=== PATIENT | male | born 1960 | race Caucasian/White ===

== ENCOUNTER 2023-06-01 08:14 | Observation (INO) ==
[~2023-06-01 08:14] MED LIST: Buffered Lidocaine 1% SYRIN 1 ml INTRADERM ONE; Famotidine IV 10 MG/ML 2 ml VIAL (20 mg) IV ONE; Lactated Ringers 1000 ml BAG 1,000 ML IV SCH; Naloxone 0.4 mg VIAL 0.4 mg/ml 1 ml VIAL IV PRN; Ondansetron 4 mg VIAL 2 MG/ML 2 ml VIAL IV PRN; fentaNYL 100 mcg/2 ml 50 MCG/ML VIAL IV PRN
[2023-06-01] MEDS ORDERED: ceFAZolin 2 GM in NS PREMIX 2 GM/100 ML BAG IVPB ONE (08:48)
[2023-06-01] MEDS ORDERED: Tranexamic Acid 1 GM/100ML BAG 2,000 MG/200 ML BAG IV ONE (08:48)
[2023-06-01 09:21] LABS: Rapid COVID-19 Molecular Undetected (Undetected)
[2023-06-01] MEDS ORDERED: Midazolam 2 mg/2 ml VIAL 1 mg/ml 2 ml VIAL (2 mg) ONE (09:25)
[2023-06-01] MEDS ORDERED: Dexamethasone IV 4 MG/ML VIAL 1 ml VIAL ONE ×2 (09:25→12:15)
[2023-06-01] MEDS ORDERED: Bupivacaine 0.5% SDV PF 30ML VIAL ONE (09:25)
[2023-06-01] MEDS ORDERED: Famotidine IV 10 MG/ML 2 ml VIAL (20 mg) ONE (09:39)
[2023-06-01] MEDS ORDERED: Lidocaine 2% PF 5 ML VIAL ONE (09:56)
[2023-06-01] MEDS ORDERED: ROPIVACAINE 5 MG/ML 30 ML BTL (0.5%) ONE (10:29)
[2023-06-01] MEDS ORDERED: Metoclopramide 5 MG/ML VIAL (10 mg) ONE (11:50)
[2023-06-01] MEDS ORDERED: Propofol 10 MG/ML 20 ML BTL ONE ×3 (12:05→12:58)
[2023-06-01] MEDS ORDERED: Morphine 2 MG/ML SYRINGE IV PRN (12:14)
[2023-06-01] MEDS ORDERED: Ondansetron ODT 4 mg TAB 4 MG TAB PO PRN (12:14)
[2023-06-01] MEDS ORDERED: Lactulose 30 ml UDC PO PRN (12:14)
[2023-06-01] MEDS ORDERED: Ondansetron 4 mg VIAL 2 MG/ML 2 ml VIAL IV PRN (12:14)
[2023-06-01] MEDS ORDERED: Magnesium Hydroxide LIQ 30 ML UDC PO PRN (12:14)
[2023-06-01] MEDS ORDERED: Ondansetron 4 mg VIAL 2 MG/ML 2 ml VIAL ONE (12:15)
[2023-06-01] MEDS ORDERED: Acetaminophen IV 1 GM/100ML 1,000 MG/100 ML BAG IV ONE (12:17)
[2023-06-01] MEDS: Lactated Ringers 1000 ml BAG 1,000 ML IV SCH (16:08)
[2023-06-01] MEDS: ceFAZolin 1 GM ADVAN 1 GM in NS 0.9% 50 ML 50 ML IVPB SCH (19:50)
[2023-06-01] MEDS: Magnesium Hydroxide LIQ 30 ML UDC PO SCH (21:05)
[2023-06-02] MEDS: Lactated Ringers 1000 ml BAG 1,000 ML IV SCH (02:21)
[2023-06-02] MEDS: ceFAZolin 1 GM ADVAN 1 GM in NS 0.9% 50 ML 50 ML IVPB SCH ×2 (03:43→12:08)
[2023-06-02 06:23] LABS: Platelet Count 259 10^3/uL (150-450)
[2023-06-02 06:39] LABS: Hematocrit 36.1 % (38-53); Hemoglobin 12.4 g/dL (13.2-16.3); Mean Platelet Volume 7.7 fL (7.5-11.2)
[2023-06-02 06:40] LABS: Calcium 8.5 mg/dL (8.6-10.3); Creatinine, Serum 1.08 mg/dL (0.67-1.17); Potassium 4.2 mmol/L (3.5-5.0); eGFR CKD-EPI 76.2 (>60)
[2023-06-02] MEDS: Magnesium Hydroxide LIQ 30 ML UDC PO SCH (08:54)
[2023-06-02] MEDS ORDERED: Vitamin THERAPEUTIC TAB PO SCH (09:00)
[2023-06-02 10:14] VITALS: BP 116/74
== END 2023-06-02 13:25 | disposition home or self-care (01) ==
LOC: AA 08:14 → INTOOBSV 08:14 → SSU 12:14
PROVIDERS: ADMIT Orthopaedic Surgery Adult Reconstructive Orthopaedic Surgery; ATTEND Orthopaedic Surgery Adult Reconstructive Orthopaedic Surgery

== ENCOUNTER 2024-06-22 06:21 | Observation (INO) ==
[~2024-06-22 06:21] MED LIST changes: -Buffered Lidocaine 1% SYRIN 1 ml INTRADERM ONE; -Famotidine IV 10 MG/ML 2 ml VIAL (20 mg) IV ONE; -Lactated Ringers 1000 ml BAG 1,000 ML IV SCH; +NS 0.45% 1000 ml BAG 1,000 ML IV SCH
[2024-06-22] MEDS: Buffered Lidocaine 1% SYRIN 1 ml INTRADERM ONE (06:58)
[2024-06-22] MEDS ORDERED: Tranexamic Acid 1 GM/100ML BAG 2,000 MG/200 ML BAG IV ONE (07:02)
[2024-06-22] MEDS ORDERED: ceFAZolin 2 GM PREMIX 2 GM/50 ML BAG ONE (07:02)
[2024-06-22 07:04] LABS: Rapid COVID-19 Molecular Undetected (Undetected)
[2024-06-22] MEDS: Lactated Ringers 1000 ml BAG 1,000 ML IV SCH ×2 (07:32→14:28)
[2024-06-22] MEDS ORDERED: fentaNYL 100 mcg/2 ml 50 MCG/ML VIAL ONE (08:14)
[2024-06-22] MEDS ORDERED: Midazolam 2 mg/2 ml VIAL 1 mg/ml 2 ml VIAL (2 mg) ONE ×3 (08:14→10:13)
[2024-06-22] MEDS ORDERED: Dexamethasone IV 4 MG/ML VIAL 1 ml VIAL ONE (08:14)
[2024-06-22] MEDS ORDERED: ROPIVACAINE 5 MG/ML 30 ML BTL (0.5%) ONE ×2 (08:15→08:35)
[2024-06-22] MEDS ORDERED: Phenylephrine IV 10 MG/ML 1 ml VIAL ONE (11:05)
[2024-06-22] MEDS ORDERED: Ondansetron ODT 4 mg TAB 4 MG TAB PO PRN (12:14)
[2024-06-22] MEDS ORDERED: Morphine 2 MG/ML SYRINGE IV PRN (12:14)
[2024-06-22] MEDS ORDERED: Lactulose 30 ml UDC PO PRN (12:14)
[2024-06-22] MEDS ORDERED: Calcium Carb (TUMS) 500 mg CHEW TAB PO PRN (12:14)
[2024-06-22] MEDS ORDERED: Magnesium Hydroxide LIQ 30 ML UDC PO PRN (12:14)
[2024-06-22] MEDS ORDERED: Ondansetron 4 mg VIAL 2 MG/ML 2 ml VIAL IV PRN (12:14)
[2024-06-22] MEDS ORDERED: ceFAZolin 2 GM PREMIX 2 GM/50 ML BAG IV SCH (13:00)
[2024-06-22] MEDS: Acetaminophen IV 1 GM/100ML 1,000 MG/100 ML BAG IV ONE (15:17)
[2024-06-22] MEDS: ceFAZolin 2 GM PREMIX 2 GM/50 ML BAG IV SCH (18:08)
[2024-06-22] MEDS: Magnesium Hydroxide LIQ 30 ML UDC PO SCH (21:41)
[2024-06-23 07:01] LABS: Hematocrit 37.6 % (38-53); Hemoglobin 12.9 g/dL (13.2-16.3); Mean Platelet Volume 7.9 fL (7.5-11.2); Platelet Count 312 10^3/uL (150-450)
[2024-06-23 07:21] LABS: Calcium 8.3 mg/dL (8.6-10.3); Creatinine, Serum 0.99 mg/dL (0.67-1.17)
[2024-06-23] MEDS: Vitamin THERAPEUTIC TAB PO SCH (08:56)
[2024-06-23] MEDS: Cholecalciferol (VIT D3) 1,000 unit TAB PO SCH (08:56)
[2024-06-23] MEDS: NON FORMULARY MED (Omeprazole 20 mg Tablet,Delayed Release (Dr/Ec)) PO SCH (08:57)
[2024-06-23] MEDS: Lactated Ringers 1000 ml BAG 500 ML IV ONE (10:26)
[2024-06-23 14:52] VITALS: BP 140/89
== END 2024-06-23 16:45 | disposition home or self-care (01) ==
LOC: SSU 06:21 → OR 06:21
PROVIDERS: ADMIT Orthopaedic Surgery Adult Reconstructive Orthopaedic Surgery; ATTEND Orthopaedic Surgery Adult Reconstructive Orthopaedic Surgery